=== PATIENT | male | born 1985 | race American Indian/Alaskan Native ===

== ENCOUNTER 2018-05-18 19:06 | Emergency (ER) | payer BC ==
[2018-05-18 19:28] VITALS: O2SAT 98
--- NOTE | 2018-05-18 20:11 | C.PDOC ---
History Of Present Illness 33 year old male presents to the ED c/o diffuse itching, hives for the past 2 days. Patient states he took Benadryl with no relief. Patient denies fever, chills, SOB, lip swelling, facial swelling, vomit, diarrhea. Time Seen by Provider: 05/18/18 20:10 Chief Complaint (Nursing): Chest Pain History Per: Patient History/Exam Limitations: no limitations Onset/Duration Of Symptoms: Days (2) Current Symptoms Are (Timing): Still Present Recent travel outside of the [place]: No Additional History Per: Patient Past Medical History Reviewed: Historical Data, Nursing Documentation, Vital Signs Vital Signs: Last Vital Signs Temp 98 F 05/18/18 19:23 Pulse 73 05/18/18 19:23 Resp 20 05/18/18 19:23 BP 140/84 05/18/18 19:23 Pulse Ox 98 05/18/18 19:23 - Medical History PMH: No Chronic Diseases Surgical History: No Surg Hx Family History: States: Unknown Family Hx - Social History Hx Alcohol Use: Yes Hx Substance Use: No Review Of Systems Constitutional: Negative for: Fever, Chills ENT: Negative for: Mouth Swelling, Throat Swelling Respiratory: Negative for: Cough, Shortness of Breath, Wheezing Gastrointestinal: Negative for: Vomiting, Abdominal Pain, Diarrhea Skin: Positive for: Rash Neurological: Negative for: Weakness, Numbness, Headache Physical Exam - Physical Exam Appears: Non-toxic, No Acute Distress Skin: Warm, Dry, Rash (diffuse urticarial rash) Head: Normacephalic Eye(s): bilateral: Normal Inspection Oral Mucosa: Moist Tongue: No Swelling Lips: No Swelling Throat: No Erythema, No Exudate, No Drooling Neck: Supple Chest: Symmetrical Cardiovascular: Rhythm Regular Respiratory: No Rales, Rhonchi (scattered), No Wheezing Gastrointestinal/Abdominal: Soft, No Tenderness, No Guarding, No Rebound Extremity: Bilateral: Atraumatic, Normal Color And Temperature, Normal ROM Neurological/Psych: Oriented x3, Normal Speech, Normal Cognition Gait: Steady ED Course And Treatment O2 Sat by Pulse Oximetry: 98 (ON RA) Pulse Ox Interpretation: Normal Progress Note: Plan: - Benadryl 50 mg PO. - Pepcid 20 mg IVP. - Solumedrol 125 mg IVP. - IV fluids Reevaluation Time: 22:03 Reassessment Condition: Improved Disposition Counseled Patient/Family Regarding: Studies Performed, Diagnosis, Need For Followup, Rx Given - Disposition Referrals: [facility] [Outside] [facility] [Outside] Disposition: HOME/ ROUTINE Disposition Time: 20:10 Condition: FAIR Additional Instructions: please also use benadryl papcid and claritin. Do return if symptoms recur Prescriptions: Epinephrine [Epipen] 0.3 mg IJ ONCE PRN #2 auto.injct PRN Reason: Anaphylaxis Prednisone [Deltasone] 20 mg PO DAILY #5 tablet Instructions: Ming (DC) Forms: [employer] (Tunisian) - Clinical Impression Clinical Impression: Allergic reaction - Scribe Statement The provider has reviewed the documentation as recorded by the Scribe Clint Miles All medical record entries made by the Scribe were at my direction and personally dictated by me. I have reviewed the chart and agree that the record accurately reflects my personal performance of the history, physical exam, medical decision making, and the department course for this patient. I have also personally directed, reviewed, and agree with the discharge instructions and disposition.
[2018-05-18] MEDS ORDERED: Sodium Chloride 0.9% 1,000 ML IV ONE (20:13)
[2018-05-18] MEDS ORDERED: Sodium Chloride 0.9% 1,000 ML ONE (20:24)
[2018-05-18 21:58] VITALS: BP 147/92; PULSE 71; RESP 16; TEMP 97.6
--- NOTE | 2018-05-19 07:02 | CARD ---
APPROVED REPORT Date of service: 05/18/2018 EKG Measurement Heart [id number] <Conclusion> Normal sinus rhythm with sinus arrhythmia Normal ECG
== END 2018-05-18 22:16 | disposition home or self-care (01) ==
LOC: MERGE 19:06 → C.ER 19:06
DX: L50.0 Allergic urticaria (principal)
CPT/HCPCS: 93005; 96361; 96374; 96375; 99285; J2930; J7030

== ENCOUNTER 2018-05-20 13:11 | Emergency (ER) | payer BC ==
[2018-05-20] MEDS ORDERED: DiphenhydrAMINE 12.5 mg/5 ml LIQ UD (5 ml) ONE (13:37)
[2018-05-20] MEDS ORDERED: DiphenhydrAMINE 12.5 mg/5 ml LIQ UD (5 ml) PO STA (13:40)
--- NOTE | 2018-05-20 14:01 | C.PDOC ---
History Of Present Illness 33 y/o male, with no medical problems, presents to ED complaining of a rash since this morning. Patient was seen here on 05/18/18 for an allergic reaction to something unknown. Patient was treated steroids and benadryl, and was discharged home with epipen and prednisone, which he did not fill until this morning. Patient states he woke up this morning with hives and felt tightness in his chest but no SOB. Patient then went to pharmacy for prednisone. States he did not use epipen but took benadryl and prednisone 20mg before coming to ER. Time Seen by Provider: 05/20/18 13:34 Chief Complaint (Nursing): Abnormal Skin Integrity History Per: Patient History/Exam Limitations: no limitations Onset/Duration Of Symptoms: Hrs Current Symptoms Are (Timing): Still Present Past Medical History Reviewed: Historical Data, Nursing Documentation, Vital Signs Vital Signs: Last Vital Signs Temp 98.0 F 05/20/18 13:21 Pulse 105 H 05/20/18 13:21 Resp 24 05/20/18 13:21 BP 121/76 05/20/18 13:21 Pulse Ox 97 05/20/18 13:21 Family History: States: No Known Family Hx - Social History Hx Alcohol Use: Yes Hx Substance Use: No Review Of Systems Cardiovascular: Positive for: Chest Pain Respiratory: Negative for: Shortness of Breath Gastrointestinal: Negative for: Vomiting Skin: Positive for: Rash Physical Exam - Physical Exam Appears: Non-toxic, In Acute Distress, Other (anxious) Skin: Warm, Dry, Rash (generalized urticarial rash) Head: Atraumatic, Normacephalic Eye(s): bilateral: Normal Inspection, PERRL, EOMI Ear(s): Bilateral: Normal Nose: No Flaring Oral Mucosa: Moist Tongue: No Swelling Lips: No Swelling Throat: Normal, No Erythema, No Exudate Neck: Supple Cardiovascular: Rhythm Regular (tachycardic), No Murmur Respiratory: Normal Breath Sounds, No Rales, No Rhonchi, No Wheezing Gastrointestinal/Abdominal: Soft, No Tenderness Extremity: Bilateral: Normal Color And Temperature, Normal ROM Neurological/Psych: Oriented x3, Normal Speech Gait: Steady ED Course And Treatment O2 Sat by Pulse Oximetry: 97 (RA) Pulse Ox Interpretation: Normal Progress Note: Patient treated with IV Solumedrol, Pepcid and po Benadryl in ED. Reevaluation Time: 15:11 Reassessment Condition: Improved (Patient in no distress, rash resolved.) Medical Decision Making Medical Decision Making: Plan: --Benadryl --Pepcid --Solumedrol Disposition Counseled Patient/Family Regarding: Studies Performed, Diagnosis, Need For Followup, Rx Given - Disposition Referrals: [facility] [Outside] Disposition: HOME/ ROUTINE Disposition Time: 15:12 Condition: IMPROVED Additional Instructions: Follow up with an donor relations associate for further testing. Take Benadryl 1-2 tablets every 6 hours for itching and rash if needed. Take Pepcid AC twice a day Prescriptions: Prednisone 50 mg PO DAILY #5 tablet Instructions: Hives Forms: [employer] (Sami) - Clinical Impression Clinical Impression: Allergic reaction, Urticaria - Scribe Statement The provider has reviewed the documentation as recorded by the Chiaraibe Aimee Ortiz Provider Attestation: All medical record entries made by the Scribe were at my direction and personally dictated by me. I have reviewed the chart and agree that the record accurately reflects my personal performance of the history, physical exam, medical decision making, and the department course for this patient. I have also personally directed, reviewed, and agree with the discharge instructions and disposition.
[2018-05-20 15:27] VITALS: BP 120/74; PULSE 95; RESP 16; TEMP 98.1; O2SAT 96
== END 2018-05-20 15:24 | disposition home or self-care (01) ==
LOC: C.ER 13:11
DX: L50.0 Allergic urticaria (principal)
CPT/HCPCS: 96374; 99284; J2930